=== PATIENT | male | born 1960 | race Caucasian/White ===

== ENCOUNTER 2021-06-15 08:07 | Emergency (ER) | payer BC, OTHER ==
[~2021-06-15] VITALS: Ht 188 cm; Wt 89.1 kg
[2021-06-15] MEDS ORDERED: PREV4POW PO (08:13)
[2021-06-15 08:49] LABS: BASO # 0.1 10^3/uL (0.0-0.2); BASO % 0.4 % (0.0-1.0); EOS % 0.1 % (0.0-3.0); HEMOGLOBIN 14.1 g/dl (13.5-17.5); LYMPH % 8.1 % (24.0-44.0); MEAN CORPUSCULAR HEMOGLOBIN 31.7 pg (27.0-33.0); MEAN CORPUSCULAR HGB CONC 33.6 g/dl (32.0-36.5); MEAN CORPUSCULAR VOLUME 94.4 fl (80.0-96.0); MONO # 0.4 10^3/uL (0.0-0.8); MONO % 3.1 % (2.0-8.0); NEUTROPHILS # 10.4 10^3/uL (1.5-8.5); NEUTROPHILS % 87.9 % (36.0-66.0); PLATELET COUNT, AUTOMATED 273 10^3/uL (150-450); RED BLOOD COUNT 4.45 10^6/uL (4.30-6.10); WHITE BLOOD COUNT 11.8 10^3/uL (4.0-10.0)
[2021-06-15] MEDS ORDERED: NS 1,000 ML IV ONE (08:55)
[2021-06-15 09:27] LABS: ALBUMIN 3.9 GM/DL (3.2-5.2); ALT/SGPT 33 U/L (12-78); BILIRUBIN,DIRECT < 0.1 MG/DL (0.0-0.2); BILIRUBIN,TOTAL 0.5 MG/DL (0.2-1.0); LIPASE 175 U/L (73-393); TOTAL PROTEIN 7.8 GM/DL (6.4-8.2)
[2021-06-15] MEDS ORDERED: FLOM0.4C39 PO (11:58)
[2021-06-15] MEDS ORDERED: IBUP-1022 PO (12:05)
[2021-06-15] MEDS ORDERED: ONDA4TAB6 PO (12:06)
[2021-06-15] MEDS ORDERED: KETOROLAC 30 MG/ML 1ML VIAL IV ONE (12:30)
[2021-06-15 13:09] VITALS: BP 129/69
== END 2021-06-15 12:45 | disposition home or self-care (01) ==
LOC: M ED 08:07
DX: N13.2 Hydronephrosis with renal and ureteral calculous obstruction (principal); N28.1 Cyst of kidney, acquired; F17.200 Nicotine dependence, unspecified, uncomplicated
CPT/HCPCS: 36415; 74176; 80047; 80076; 81001; 83690; 85025; 96361; 96374; 99284; J1885

== ENCOUNTER 2023-12-02 09:23 | Day surgery (SDC) | payer OTHER ==
[~2023-12-02] VITALS: Ht 188 cm; Wt 90.7 kg
[~2023-12-02 09:23] MED LIST: FLOM0.4C39 PO; IBUP-1022 PO; ONDA-282 PO; PREV4POW PO
[2023-12-02] MEDS: NS 1,000 ML IV ONE (09:36)
[2023-12-02] MEDS ORDERED: propofoL 200 MG/20 ML VIAL As Ordered ONE (09:46)
[2023-12-02] MEDS ORDERED: fentaNYL 100 MCG/2 ML INJECTION As Ordered ONE (09:54)
[2023-12-02 10:19] VITALS: TEMP 98.2
[2023-12-02 10:30] VITALS: BP 119/74; O2SAT 94
== END 2023-12-02 10:39 | disposition home or self-care (01) ==
LOC: M OPP 09:23
PROVIDERS: ATTEND Internal Medicine Gastroenterology
DX: Z12.11 Encounter for screening for malignant neoplasm of colon (principal); Z86.010 Personal history of colon polyps; D12.8 Benign neoplasm of rectum; K63.5 Polyp of colon; K64.0 First degree hemorrhoids; K57.30 Diverticulosis of large intestine without perforation or abscess without bleeding; F17.200 Nicotine dependence, unspecified, uncomplicated
CPT/HCPCS: 45385; 88305; J3010